=== PATIENT | male | born 1960 | race African-American/Black ===

== ENCOUNTER 2018-02-02 15:18 | Emergency (ER) | payer MEDICAID ==
[2018-02-02] MEDS ORDERED: ONDANSETRON 4 MG TAB.RAPDIS PO ONE (15:51)
[2018-02-02] MEDS ORDERED: OXYCODONE-ACETAMINOPHEN 5-325 MG TABLET PO ONE ×2 (15:51→18:25)
--- NOTE | 2018-02-02 15:56 | ER Document Report ---
ED General - General Stated Complaint: RIGHT HIP PAIN LEFT RIB PAIN Time Seen by Provider: 02/02/18 15:50 Mode of Arrival: Medic Information source: Patient Notes: 58 [address] male on way to get xray ordered by dr. alcantara and decided that his chronic right back pain with radiculopathy was worse, and worried about the swelling to his left chest, nipple, neck so he came by EMS. Here with . Hx SVC syndrome, bypass, renal insufficiency, diabetes. No saddel anesthesia. TRAVEL OUTSIDE OF THE [place] IN LAST 30 DAYS: No - Related Data Allergies/Adverse Reactions: No Known Allergies Allergy (Unverified 02/25/16 01:45) Past Medical History - General Information source: Patient, Relative - - Social History Smoking Status: Former Smoker Frequency of alcohol use: None Drug Abuse: None Family History: Reviewed & Not Pertinent - Past Medical History Cardiac Medical History: Reports: Other - SVC syndrom Renal/ Medical History: Reports: Other - renal insufficiency Psychiatric Medical History: Reports: Hx Depression Past Surgical History: Reports: Other - SVC bypass - Immunizations Hx Pneumococcal Vaccination: 11/29/11 Review of Systems - Review of Systems Constitutional: No symptoms reported EENT: No symptoms reported Cardiovascular: No symptoms reported Respiratory: No symptoms reported Gastrointestinal: No symptoms reported Genitourinary: No symptoms reported Male Genitourinary: No symptoms reported Musculoskeletal: See HPI Skin: See HPI Hematologic/Lymphatic: No symptoms reported Neurological/Psychological: No symptoms reported Physical Exam - Vital signs Vitals: Temp Pulse BP Pulse Ox 98.6 F 75 132/78 H 99 02/02/18 16:21 02/02/18 16:21 02/02/18 16:21 02/02/18 16:21 Interpretation: Normal - General General appearance: Appears well, Alert, Anxious In distress: None - HEENT Head: Normocephalic, Atraumatic Eyes: Normal Conjunctiva: Normal Pupils: PERRL Neck: Supple Notes: left neck veins engorged - Respiratory Respiratory status: No respiratory distress Chest status: Other - extensive enlarged left chest venous system, indurated area left sub aerola, mid chest, multiple veins down left abominal wall ? bypass Breath sounds: Normal Chest palpation: Normal - Cardiovascular Rhythm: Regular Heart sounds: Normal auscultation Murmur: No - Abdominal Inspection: Normal Distension: No distension Bowel sounds: Normal Tenderness: Nontender Organomegaly: No organomegaly - Back Back: Normal, Tender - right lumbar, sacral iliac. No: Vertebra tenderness - Extremities General upper extremity: Normal inspection, Nontender, Normal color, Normal ROM , Normal temperature General lower extremity: Normal inspection, Nontender, Normal color, Normal ROM , Normal temperature, Normal weight bearing. No: Donavan's sign - Neurological Neuro grossly intact: Yes Cognition: Normal Orientation: AAOx4 [place] Coma Scale Eye Opening: Spontaneous Zan Coma Scale Verbal: Oriented Zan Coma Scale Motor: Obeys Commands Zan Coma Scale Total: 15 Speech: Normal Motor strength normal: LUE, RUE, LLE, RLE Sensory: Normal Knee - Reflex grade: 1 = Hypoactive - norman Ankle - Reflex grade: 1 = Hypoactive - norman - Psychological Associated symptoms: Normal affect, Normal mood - Skin Skin Temperature: Warm Skin Moisture: Dry Skin Color: Normal Skin irregularity: negative: Rash Course - Re-evaluation Re-evalutation: 02/02/18 15:[address] Babcock, get the ct abd/pelvis/chest with IV contrast. 02/02/[address] lin who went into the room for pt evaluation and dispo. Pt to f/ u with dr. alcantara. Pt upset that .dr. Ferrari will not prescrbe pain medication anymore. Will refer to pain management. - Vital Signs Vital signs: Temp Pulse Resp BP Pulse Ox 97.3 F 72 16 143/90 H 100 02/02/18 20:14 02/02/18 20:14 02/02/18 20:14 02/02/18 20:14 02/02/18 20:14 - Laboratory Result Diagrams: 02/02/18 16:30 02/02/18 16:30 Laboratory results interpreted by me: 02/02/18 02/02/18 02/02/18 16:30 16:30 16:30 RBC 4.27 L MCV 98 H PT 16.4 H APTT 37.6 H BUN 28 H Creatinine 1.82 H Est GFR ( Amer) 47 L Est GFR (Non-Af Amer) 39 L Glucose 200 H Alkaline Phosphatase 184 H Urine Protein Urine Glucose (UA) 02/02/18 19:06 RBC MCV PT APTT BUN Creatinine Est GFR ( Amer) Est GFR (Non-Af Amer) Glucose Alkaline Phosphatase Urine Protein 100 H Urine Glucose (UA) 150 H Discharge - Discharge Clinical Impression: right low back pain with radiculopathy, chest wall vascular congestion Condition: Good Disposition: HOME, SELF-CARE Instructions: Low Back Pain ([facility]), Radiculopathy ([facility]), Sciatica ([facility]) Additional Instructions: warm compress pain medication short course see dr. alcantara tomorrow referral to [facility] to er if worse lidocaine patches to your back Prescriptions: Lidocaine [Lidoderm 5% (700 mg) Transdermal Patch] 1 patch TP PRN PRN #20 adh..patch PRN Reason: Oxycodone HCl/Acetaminophen [Percocet 5-325 mg Tablet] 1 - 2 tab PO ASDIR PRN # 15 tablet PRN Reason: Prednisone [Deltasone 10 mg Tablet] 10 mg PO ASDIR PRN #21 tablet PRN Reason: Referrals: JIMMY ALCANTARA MD [Primary Care Provider] - Follow up tomorrow GEE OH MD [ACTIVE STAFF] - Follow up tomorrow
[2018-02-02 16:49] LABS: INTERNATIONAL RATION (INR) 1.24; PROTHROMBIN TIME 16.4 SEC (11.4-15.4)
[2018-02-02 16:50] LABS: PARTIAL THROMBOPLASTIN TIME 37.6 SEC (23.5-35.8)
[2018-02-02 16:56] LABS: ABSOLUTE BASOPHILS # (AUTO) 0.1 10^3/uL (0.0-0.2); ABSOLUTE EOSINOPHILS # (AUTO) 0.3 10^3/uL (0.0-0.6); ABSOLUTE LYMPHOCYTES (AUTO) 1.9 10^3/uL (0.5-4.7); ABSOLUTE MONOCYTES (AUTO) 0.8 10^3/uL (0.1-1.4); ABSOLUTE NEUT (AUTO) 4.3 10^3/uL (1.7-8.2); BASOPHILS % (AUTO) 0.8 % (0-2); EOSINOPHILS % (AUTO) 3.6 % (0-6); HEMATOCRIT 41.8 % (37.9-51.0); HEMOGLOBIN 14.3 g/dL (13.5-17.0); LYMPHOCYTES % (AUTO) 26.6 % (13-45); MEAN CORPUSCULAR HEMOGLOBIN 33.4 pg (27.0-33.4); MEAN CORPUSCULAR HGB CONC 34.2 g/dL (32.0-36.0); MEAN CORPUSCULAR VOLUME 98 fl (80-97); MONOCYTES % (AUTO) 10.3 % (3-13); PLATELET COUNT 220 10^3/uL (150-450); RED BLOOD COUNT 4.27 10^6/uL (4.35-5.55); RED CELL DISTRIBUTION WIDTH 13.6 % (11.5-14.0); SEGMENTED NEUTROPHILS % (AUTO) 58.7 % (42-78); TOTAL CELLS COUNTED % (AUTO) 100 %; WHITE BLOOD COUNT 7.3 10^3/uL (4.0-10.5)
[2018-02-02 17:07] LABS: ALANINE AMINOTRANSFERASE 32 U/L (21-72); ALKALINE PHOSPHATASE 184 U/L (38-126); ANION GAP 6 (5-19); ASPARTATE AMINO TRANSFERASE 40 U/L (17-59); BILIRUBIN,DIRECT 0.4 mg/dL (0.0-0.4); BILIRUBIN,TOTAL 0.4 mg/dL (0.2-1.3); BLOOD UREA NITROGEN 28 mg/dL (7-20); CALCIUM 9.1 mg/dL (8.4-10.2); CARBON DIOXIDE 28 mmol/L (22-30); CHLORIDE 104 mmol/L (98-107); GLUCOSE 200 mg/dL (75-110); POTASSIUM 4.4 mmol/L (3.6-5.0); SODIUM 138.3 mmol/L (137-145); TOTAL PROTEIN 7.3 g/dL (6.3-8.2)
--- NOTE | 2018-02-02 18:29 | RADIOLOGY REPORT (SQ) ---
EXAM DESCRIPTION: CT CHEST WITH COMPLETED DATE/TIME: 02/02/2018 6:13 pm REASON FOR STUDY: left chest mass, hx SVC, bypass COMPARISON: None. TECHNIQUE: CT scan of the chest performed using helical scanning technique with dynamic intravenous contrast injection. Images reviewed with lung, soft tissue and bone windows. Reconstructed coronal and sagittal MPR images reviewed. All images stored on PACS. All CT scanners at this facility use dose modulation, iterative reconstruction, and/or weight based d osing when appropriate to reduce radiation dose to as low as reasonably achievable (ALARA). [facility]: Dose Right [facility]: CareDose [facility]: Dose Right [facility]: Teradose 4D [facility]: [facility] [employer] CONTRAST TYPE AND DOSE: contrast/concentration: Isovue 370.00 mg/ml; Total Contrast Delivered: 100.0 ml; Total Saline Delivered: 45.0 ml RENAL FUNCTION: BUN 28 creatinine 1.8 RADIATION DOSE: . LIMITATIONS: None. FINDINGS: LUNGS AND PLEURA: No opacities, nodules, masses. No pneumothorax. No effusions. HILAR AND MEDIASTINAL STRUCTURES: No identified masses or abnormal nodes. HEART AND VASCULAR STRUCTURES: No aneurysm or dissection. No central pulmonary emboli. No pericardi al effusion. The superior vena cava appears to be occluded and there are extensive subcutaneous brian ateral vessels in the anterior chest and abdomen. HARDWARE: Sternotomy wires. UPPER ABDOMEN: See separate report of the CT of the abdomen. THYROID AND OTHER SOFT TISSUES: Thyroid is normal. BONES: No significant finding. OTHER: No other significant finding. IMPRESSION: Stable vascular findings. No acute abnormality is seen in the chest. TECHNICAL DOCUMENTATION: JOB ID: [id number] Quality ID # [id number]: Final reports with documentation of one or more dose reduction techniques (e.g., Au tomated exposure control, adjustment of the mA and/or kV according to patient size, use of iterative reconstruction technique) 2010 [employer]- All Rights Reserved Reading location - IP/workstation name: [email or web address]
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
[2018-02-02 19:33] LABS: APPEARANCE,URINE CLEAR; BILIRUBIN,URINE NEGATIVE (NEGATIVE); COLOR,URINE YELLOW; GLUCOSE, URINE 150 mg/dL (NEGATIVE); KETONES,URINE NEGATIVE (NEGATIVE); LEUKOCYTE ESTERASE,URINE NEGATIVE (NEGATIVE); NITRITE,URINE NEGATIVE (NEGATIVE); PROTEIN,URINE 100 mg/dL (NEGATIVE); URINE SPECIFIC GRAVITY 1.013; UROBILINOGEN,URINE NEGATIVE mg/dL (<2.0)
[2018-02-02 20:16] VITALS: BP 143/90
== END 2018-02-02 20:28 | disposition home or self-care (01) ==
LOC: ER 15:18
DX: M54.16 Radiculopathy, lumbar region (principal); I87.8 Other specified disorders of veins; R07.81 Pleurodynia; G89.29 Other chronic pain; M25.551 Pain in right hip
CPT/HCPCS: 99284; 36415; 87040; 85025; 85610; 85730; 80053; 81001; 71260; 74177; S0119

== ENCOUNTER → 2018-10-19 | Outpatient (CLI) | payer MEDICAID ==
[2018-10-19 11:56] LABS: UR PRO/CREAT RATIO RESULT 0.6 mg/mg (0.0-0.2); URINE PROTEIN 74.8 mg/dL (<12)
[2018-10-21 13:24] LABS: ANION GAP 10 (5-19); BLOOD UREA NITROGEN 58 mg/dL (7-20); CALCIUM 9.2 mg/dL (8.4-10.2); CARBON DIOXIDE 27 mmol/L (22-30); CHLORIDE 106 mmol/L (98-107); GLUCOSE 242 mg/dL (75-110); POTASSIUM 5.3 mmol/L (3.6-5.0); SODIUM 143.4 mmol/L (137-145)
== END ==
LOC: OD 10:35
PROVIDERS: ATTEND Internal Medicine Nephrology
DX: E11.22 Type 2 diabetes mellitus with diabetic chronic kidney disease (principal); N18.3 Chronic kidney disease, stage 3 (moderate); R80.9 Proteinuria, unspecified; E11.21 Type 2 diabetes mellitus with diabetic nephropathy
CPT/HCPCS: 36415; 80048; 82570; 84156

== ENCOUNTER → 2018-10-26 | Outpatient (CLI) | payer MEDICAID ==
--- NOTE | 2018-10-26 11:42 | RADIOLOGY REPORT (SQ) ---
EXAM DESCRIPTION: U/S SCROTUM W/DOPPLER COMPLETED DATE/TIME: 10/26/2018 11:01 am REASON FOR STUDY: TESTICULAR PAIN N50.819 TESTICULAR PAIN, UNSPECIFIED COMPARISON: CT abdomen pelvis 02/02/2018 TECHNIQUE: Static and realtime negron scale imaging of the scrotum and testes. Selected color Doppler and spectral images recorded to document blood flow. LIMITATIONS: None. FINDINGS: RIGHT: TESTICLE: Normal size, 3.9 x 2.1 x 2 cm in size. Normal echotexture. Normal blood flow. No mass. EPIDIDYMIS: 2 mm epididymal cyst, otherwise unremarkable HYDROCELE OR VARICOCELE: Small right hydrocele HERNIA OR EXTRA-TESTICULAR MASS: No. OTHER: No other significant finding. LEFT: TESTICLE: Normal size, acute the since films 3.2 x 2.6 x 1.7 cm in size. Normal echotexture. Normal blood flow. No mass. EPIDIDYMIS: Normal. HYDROCELE OR VARICOCELE: Small left hydrocele HERNIA OR EXTRA-TESTICULAR MASS: No. OTHER: No other significant finding. IMPRESSION: NORMAL SCROTAL ULTRASOUND. NO EVIDENCE OF TESTICULAR MASS OR TORSION. TECHNICAL DOCUMENTATION: JOB ID: [id number] [employer]- All Rights Reserved Reading location - IP/workstation name: [email or web address]
--- NOTE | 2018-10-26 13:11 | RADIOLOGY REPORT (SQ) ---
EXAM DESCRIPTION: TIBIA FIBULA LEFT COMPLETED DATE/TIME: 10/26/2018 12:37 pm REASON FOR STUDY: PAIN IN LEFT KNEE (M25.562) N50.819 TESTICULAR PAIN, UNSPECIFIED COMPARISON: Left tibia and fibula 02/24/2016, 02/26/2016, 05/06/2016 NUMBER OF VIEWS: Two views. TECHNIQUE: Two radiographic images acquired of the left tibia and fibula to include the knee and ank le in at least one projection. LIMITATIONS: None. FINDINGS: MINERALIZATION: Normal. BONES: Old left spiral fracture distal 3rd left tibial diaphysis with intramedullary nail with anchor ing screws. There is mild lucency around the intramedullary nail suggesting loosening, and fracture of the more inferior of the 2 proximal metaphyseal anchoring screws. Old healed spiral fracture proximal 3rd left fibula without hardware. Small osteochondral defect medial femoral condyle weight-bearing surface. SOFT TISSUES: No obvious swelling or foreign body. OTHER: No other significant finding. IMPRESSION: No acute fracture or malalignment. Old healed distal 3rd left tibia spiral fracture with hardware. There is lucency around the intramed ullary nail with fracture of 1 of the tibial proximal metaphysis screws. Old healed proximal 3rd left fibula fracture TECHNICAL DOCUMENTATION: JOB ID: [id number] [employer]- All Rights Reserved Reading location - IP/workstation name: [email or web address]
== END ==
LOC: RAD 11:27
PROVIDERS: ATTEND Internal Medicine
DX: N50.819 Testicular pain, unspecified (principal)
CPT/HCPCS: 76870; 93976

== ENCOUNTER → 2018-11-28 | Outpatient (CLI) | payer MEDICAID ==
--- NOTE | 2018-11-28 11:49 | RADIOLOGY REPORT (SQ) ---
EXAM DESCRIPTION: L SPINE WHOLE COMPLETED DATE/TIME: 11/28/2018 11:08 am REASON FOR STUDY: RADICULOPATHY, LUMBAR REGION M54.16 RADICULOPATHY, LUMBAR REGION COMPARISON: 06/04/2008 NUMBER OF VIEWS: Five views including obliques. TECHNIQUE: AP, lateral, oblique, and sacral radiographic images acquired of the lumbar spine. LIMITATIONS: None. FINDINGS: MINERALIZATION: Normal. SEGMENTATION: Normal. No transitional anatomy. ALIGNMENT: Normal. VERTEBRAE: Maintained height. No fracture or worrisome bone lesion. DISCS: Slight to mild multilevel disc space narrowing with small anterior osteophytes. Linear scler otic changes across the superior endplate at L4 may be on a degenerative basis. POSTERIOR ELEMENTS: Pedicles and facets are intact. No pars defect or posterior arch defects. HARDWARE: None in the spine. PARASPINAL SOFT TISSUES: Normal. PELVIS: Intact as visualized. No fractures or worrisome bone lesions. SI joints intact. OTHER: Multiple surgical metallic clips in the upper abdomen and pelvic region. IMPRESSION: 1. Mild degenerative changes involving the lumbar spine. 2. No acute osseous findings. 3. In view of the given history and symptoms, additional imaging may be helpful. TECHNICAL DOCUMENTATION: JOB ID: [id number] [employer]- All Rights Reserved Reading location - IP/workstation name: [email or web address]
== END ==
LOC: RAD 10:19
PROVIDERS: ATTEND Internal Medicine
DX: M51.06 Intervertebral disc disorders with myelopathy, lumbar region (principal)
CPT/HCPCS: 72110

== ENCOUNTER → 2019-01-06 | Outpatient (CLI) | payer MEDICAID ==
--- NOTE | 2019-01-06 09:24 | RADIOLOGY REPORT (SQ) ---
EXAM DESCRIPTION: U/S ABDOMEN LIMITED W/O DOP COMPLETED DATE/TIME: 01/06/2019 9:13 am REASON FOR STUDY: R10.817 GENERALIZED ABDOMINAL TENDERNESS R10.817 GENERALIZED ABDOMINAL TENDERNESS R11.0 NAUSEA COMPARISON: None. TECHNIQUE: Dynamic and static grayscale images acquired of the abdomen and recorded on PACS. Additio nal selected color Doppler and spectral images recorded. LIMITATIONS: None. FINDINGS: PANCREAS: Suboptimal examination due to overlying bowel gas. LIVER: The liver measures 11.1 cm, normal size. No masses. Echotexture normal. LIVER VASCULATURE: Normal directional flow of the main portal vein and hepatic veins. GALLBLADDER: Prior cholecystectomy. ULTRASOUND-DETECTED PRESTON'S SIGN: Negative. INTRAHEPATIC DUCTS AND COMMON DUCT: CBD measures 8.4 mm in diameter, normal. The intrahepatic ducts normal caliber. No filling defects. INFERIOR VENA CAVA: Normal flow. AORTA: No aneurysm. RIGHT KIDNEY: The right kidney measures 9.1 cm in length, normal size. Normal echogenicity. No solid or suspicious masses. No hydronephrosis. No calcifications. PERITONEAL AND RIGHT PLEURAL SPACE: No ascites or effusions. OTHER: No other significant findings. IMPRESSION: 1. Prior cholecystectomy. 2. The pancreas is suboptimally visualized due to overlying bowel gas. TECHNICAL DOCUMENTATION: JOB ID: [id number] [employer]- All Rights Reserved Reading location - IP/workstation name: [email or web address]
== END ==
LOC: RAD 08:35
PROVIDERS: ATTEND Internal Medicine Gastroenterology
DX: R10.817 Generalized abdominal tenderness (principal); R11.0 Nausea; Z90.49 Acquired absence of other specified parts of digestive tract
CPT/HCPCS: 76705

== ENCOUNTER 2019-02-07 19:09 | Inpatient (IN) | payer MEDICAID ==
[2019-02-07] MEDS: NORMAL SALINE 1000 ML 1,000 ML IV PRN ×2 (19:22→20:07)
[2019-02-07] MEDS ORDERED: DILTIAZEM HCL INJ 25 MG/5 ML VIAL ONE (19:31)
[2019-02-07] MEDS ORDERED: ADENOSINE INJ/PF 6 MG/2 ML SDV IV ONE (19:36)
[2019-02-07] MEDS ORDERED: DILTIAZEM HCL INJ 25 MG/5 ML VIAL IV ONE (19:36)
--- NOTE | 2019-02-07 19:36 | ER Document Report ---
ED General - General Chief Complaint: Abdominal Pain Stated Complaint: ABDOMINAL PAIN Time Seen by Provider: 02/07/19 19:35 Notes: 59-year-old male to the emergency department for evaluation of shortness of breath and nausea and vomiting and abdominal pain. Patient has long-standing history of pancreatitis, supervision ventricular tachycardia as well as superior vena cava syndrome. Followed by multiple specialist. On Coumadin. Began hav ing shortness of breath after vomiting excessively. Some mild pain in the chest. Heart is racing. EMS was notified. EMS was unable to obtain IV access and the right here was quite short so brought to the ER. Placed in trauma 1 on arrival. His heart rate was found to be 180. Stat IV obtained. TRAVEL OUTSIDE OF THE [place] IN LAST 30 DAYS: No - HPI Onset: Just prior to arrival Severity: Mild Pain Level: 1 - Related Data Allergies/Adverse Reactions: hydromorphone [From Dilaudid] Adverse Reaction (Mild, Verified 02/07/19 19:39) Hives morphine Adverse Reaction (Mild, Verified 02/07/19 20:47) Hives Past Medical History - General Information source: Patient, PENDING SALE TO [facility] Records - Social History Smoking Status: Current Every Day Smoker Frequency of alcohol use: None Drug Abuse: None Lives with: Spouse/Significant other Family History: Reviewed & Not Pertinent - Past Medical History Cardiac Medical History: Reports: Hx Hypertension Pulmonary Medical History: Reports: Hx COPD Endocrine Medical History: Reports: Hx Diabetes Mellitus Type 2 Renal/ Medical History: Denies: Hx Peritoneal Dialysis GI Medical History: Reports: Hx Gastroesophageal Reflux Disease Psychiatric Medical History: Reports: Hx Depression Past Surgical History: Reports: Hx Appendectomy, Hx Cardiac Catheterization - x2, Hx Cardiac Surgery - Bypass, Hx Cholecystectomy, Other - SVC bypass - Immunizations Hx Pneumococcal Vaccination: 11/29/11 Review of Systems - Review of Systems Notes: Constitutional: denies: Chills, Diaphoresis, Fever, Malaise, Weakness EENT: denies: Eye discharge, Blurred vision, Tearing, Double vision, Nose congestion, Nose discharge, Throat swelling, Mouth pain Cardiovascular: denies: Palpitations, Heart racing, Orthopnea, +Dyspnea,+Chest pain Respiratory: denies: Cough, Hurts to breathe, Wheezing,+ Shortness of breath Gastrointestinal: denies: Abdominal pain, Diarrhea, Nausea, Vomiting, Black stools, bright red blood in stool Genitourinary: denies: Burning, Dysuria, Discharge, Frequency, Flank pain, Hematuria Musculoskeletal: denies: Joint pain, Joint swelling, Muscle pain, Muscle stiffness, back pain Hematologic/Lymphatic: denies: Anemia, Easy bleeding, Easy bruising, +Blood clots Neurological/Psychological: denies: Confusion, Dementia, Depression, Loss of consciousness Skin: No lesions, no masses, no skin breakdown, no abscesses Physical Exam - Vital signs Vitals: Resp Pulse Ox 15 98 02/07/19 19:12 02/07/19 19:12 Interpretation: Tachycardic - General General appearance: Appears well, Alert, Anxious - HEENT Head: Normocephalic, Atraumatic Eyes: Normal Pupils: PERRL - Respiratory Respiratory status: No respiratory distress Chest status: Nontender Breath sounds: Normal Chest palpation: Normal Notes: Chest reveals large amount of dilated venous blood vessels consistent with his reported history of superior vena cava syndrome. - Cardiovascular Rhythm: Irregularly irregular, Tachycardia Heart sounds: Normal auscultation Murmur: No - Abdominal Inspection: Normal Distension: No distension Bowel sounds: Normal Tenderness: Nontender Organomegaly: No organomegaly - Back Back: Normal, Nontender - Extremities General upper extremity: Normal inspection, Nontender, Normal color, Normal ROM, Normal temperature General lower extremity: Normal inspection, Nontender, Normal color, Normal ROM, Normal temperature. No: Donavan's sign - Neurological Neuro grossly intact: Yes Cognition: Normal Orientation: AAOx4 [place] Coma Scale Eye Opening: Spontaneous Zan Coma Scale Verbal: Oriented Zan Coma Scale Motor: Obeys Commands Zan Coma Scale Total: 15 Speech: Normal Motor strength normal: LUE, RUE, LLE, RLE Sensory: Normal - Psychological Associated symptoms: Normal affect, Normal mood - Skin Skin Temperature: Warm Skin Moisture: Dry Skin Color: Normal Course - Re-evaluation Re-evalutation: 02/07/19 20:34 59-year-old male with atrial fibrillation with RVR and intermittent SVT. On a diltiazem drip at this time. Blood pressure holding steady at 110/80. Currently at this time still needs to be admitted. I have consulted with Dr. Martínez his primary care doctor. He will admit him at this time in stable condition. 02/07/19 20:34 Laboratory 0302/07/19 02/07/19 19:20 19:20 19:20 WBC 8.9 RBC 4.19 L Hgb 14.2 Hct 41.1 MCV 98 H MCH 33.9 H MCHC 34.6 RDW 14.2 H Plt Count 234 Seg Neutrophils % 69.7 Lymphocytes % 19.1 Monocytes % 8.4 Eosinophils % 1.6 Basophils % 1.2 Absolute Neutrophils 6.2 Absolute Lymphocytes 1.7 Absolute Monocytes 0.7 Absolute Eosinophils 0.1 Absolute Basophils 0.1 PT 15.3 INR 1.15 Sodium 135.1 L Potassium 4.8 Chloride 101 Carbon Dioxide 26 Anion Gap 8 BUN 32 H Creatinine 2.05 H Est GFR ( Amer) 41 L Est GFR (Non-Af Amer) 34 L Glucose 216 H Calcium 9.5 Total Bilirubin 0.8 Direct Bilirubin 0.4 Neonat Total Bilirubin Not Reportable Neonat Direct Bilirubin Not Reportable Neonat Indirect Bili Not Reportable AST 29 ALT 22 Alkaline Phosphatase 191 H Creatine Kinase 128 CK-MB (CK-2) Troponin I Total Protein 7.2 Albumin 4.2 02/07/19 02/07/19 19:20 19:20 WBC RBC Hgb Hct MCV MCH MCHC RDW Plt Count Seg Neutrophils % Lymphocytes % Monocytes % Eosinophils % Basophils % Absolute Neutrophils Absolute Lymphocytes Absolute Monocytes Absolute Eosinophils Absolute Basophils PT INR Sodium Potassium Chloride Carbon Dioxide Anion Gap BUN Creatinine Est GFR ( Amer) Est GFR (Non-Af Amer) Glucose Calcium Total Bilirubin Direct Bilirubin Neonat Total Bilirubin Neonat Direct Bilirubin Neonat Indirect Bili AST ALT Alkaline Phosphatase Creatine Kinase CK-MB (CK-2) 0.76 Troponin I < 0.012 Cancelled Total Protein Albumin Chest X-Ray 02/07/19 19:34 IMPRESSION: No acute disease. - Vital Signs Vital signs: Temp Pulse Resp BP Pulse Ox 98.1 F 14 102/65 96 02/07/19 19:13 02/07/19 23:45 02/07/19 23:41 02/07/19 23:45 - Laboratory Result Diagrams: 02/07/19 22:40 02/07/19 19:20 Laboratory results interpreted by me: 02/07/19 02/07/19 19:20 19:20 RBC 4.19 L MCV 98 H MCH 33.9 H RDW 14.2 H Sodium 135.1 L BUN 32 H Creatinine 2.05 H Est GFR ( Amer) 41 L Est GFR (Non-Af Amer) 34 L Glucose 216 H Alkaline Phosphatase 191 H Critical Care Note - Critical Care Note Total time excluding time spent on procedures (mins): 45 Comments: Bedside supervision of medication intervention for tachycardia and arrhythmia, consultation with specialist, Discharge - Discharge Clinical Impression: Atrial fibrillation with rapid ventricular response Chronic renal failure Qualifiers: Chronic kidney disease stage: unspecified stage Qualified Code(s): N18.9 - Chronic kidney disease, unspecified Condition: Fair Disposition: ADMITTED INPATIENT Admitting Provider: [facility] Admitted: [facility]
[2019-02-07 19:45] LABS: ABSOLUTE BASOPHILS # (AUTO) 0.1 10^3/uL (0.0-0.2); ABSOLUTE EOSINOPHILS # (AUTO) 0.1 10^3/uL (0.0-0.6); ABSOLUTE LYMPHOCYTES (AUTO) 1.7 10^3/uL (0.5-4.7); ABSOLUTE MONOCYTES (AUTO) 0.7 10^3/uL (0.1-1.4); ABSOLUTE NEUT (AUTO) 6.2 10^3/uL (1.7-8.2); BASOPHILS % (AUTO) 1.2 % (0-2); EOSINOPHILS % (AUTO) 1.6 % (0-6); HEMATOCRIT 41.1 % (37.9-51.0); HEMOGLOBIN 14.2 g/dL (13.5-17.0); INTERNATIONAL RATION (INR) 1.15; LYMPHOCYTES % (AUTO) 19.1 % (13-45); MEAN CORPUSCULAR HEMOGLOBIN 33.9 pg (27.0-33.4); MEAN CORPUSCULAR HGB CONC 34.6 g/dL (32.0-36.0); MEAN CORPUSCULAR VOLUME 98 fl (80-97); MONOCYTES % (AUTO) 8.4 % (3-13); PLATELET COUNT 234 10^3/uL (150-450); PROTHROMBIN TIME 15.3 SEC (11.4-15.4); RED BLOOD COUNT 4.19 10^6/uL (4.35-5.55); RED CELL DISTRIBUTION WIDTH 14.2 % (11.5-14.0); SEGMENTED NEUTROPHILS % (AUTO) 69.7 % (42-78); TOTAL CELLS COUNTED % (AUTO) 100 %; WHITE BLOOD COUNT 8.9 10^3/uL (4.0-10.5)
[2019-02-07 19:57] LABS: ALANINE AMINOTRANSFERASE 22 U/L (21-72); ALBUMIN 4.2 g/dL (3.5-5.0); ALKALINE PHOSPHATASE 191 U/L (38-126); ANION GAP 8 (5-19); ASPARTATE AMINO TRANSFERASE 29 U/L (17-59); BILIRUBIN,DIRECT 0.4 mg/dL (0.0-0.4); BILIRUBIN,TOTAL 0.8 mg/dL (0.2-1.3); BLOOD UREA NITROGEN 32 mg/dL (7-20); CALCIUM 9.5 mg/dL (8.4-10.2); CARBON DIOXIDE 26 mmol/L (22-30); CHLORIDE 101 mmol/L (98-107); CREATINE KINASE 128 U/L (55-170); GLUCOSE 216 mg/dL (75-110); POTASSIUM 4.8 mmol/L (3.6-5.0); SODIUM 135.1 mmol/L (137-145); TOTAL PROTEIN 7.2 g/dL (6.3-8.2)
[2019-02-07] MEDS ORDERED: DILTIAZEM HCL/D5W 125 MG/125 ML RTUINJ IV ONE (20:02)
[2019-02-07 20:08] LABS: CREATINE KINASE MB 0.76 ng/mL (<4.55)
[2019-02-07] MEDS ORDERED: DILTIAZEM HCL/D5W 125 MG/125 ML RTUINJ IV PRN (20:08)
[2019-02-07 20:10] LABS: TROPONIN I < 0.012 ng/mL
--- NOTE | 2019-02-07 20:14 | RADIOLOGY REPORT (SQ) ---
EXAM DESCRIPTION: XR CHEST 1 VIEW COMPLETED DATE/TME: 02/07/2019 19:34 CLINICAL HISTORY: 59 years, Male, PALPITATIONS Compared to 06/12/2011. FINDINGS: Heart is moderately enlarged. Status post median sternotomy. No consolidations or pleural effusions. No pulmonary edema or pneumothorax. IMPRESSION: No acute disease.
[2019-02-07] MEDS ORDERED: OXYCODONE-ACETAMINOPHEN 5-325 MG TABLET PO ONE (20:38)
[2019-02-07] MEDS ORDERED: FENTANYL CITRATE INJ/PF 100 MCG/2 ML AMPUL IV ONE (20:38)
[2019-02-07] MEDS ORDERED: DEXTROSE 5%-WATER 500 ML with AMIODARONE HCL 900 MG IV PRN ×2 (22:09)
[2019-02-07] MEDS ORDERED: DEXTROSE 50%-WATER 25 GM/50 ML DISP.SYRIN IV PRN ×2 (22:11)
[2019-02-07] MEDS ORDERED: DEXTROSE 40% GEL 15 GM TUBE PO PRN ×2 (22:11)
[2019-02-07] MEDS ORDERED: GLUCAGON,HUMAN RECOMB 1 MG INJ IM PRN (22:11)
[2019-02-07] MEDS ORDERED: DICYCLOMINE HCL 10 MG CAPSULE PO PRN (22:20)
[2019-02-07] MEDS ORDERED: AMIODARONE HCL INJ 150 MG/3 ML VIAL IV ONE ×2 (22:32→22:33)
[2019-02-07 22:55] LABS: HEMATOCRIT 39.5 % (37.9-51.0); HEMOGLOBIN 13.4 g/dL (13.5-17.0); MEAN CORPUSCULAR HEMOGLOBIN 33.6 pg (27.0-33.4); MEAN CORPUSCULAR VOLUME 99 fl (80-97); PLATELET COUNT 194 10^3/uL (150-450); RED BLOOD COUNT 3.99 10^6/uL (4.35-5.55); WHITE BLOOD COUNT 7.3 10^3/uL (4.0-10.5)
[2019-02-07] MEDS ORDERED: ERGOCALCIFEROL (VITAMIN D2) 50000 UNIT (1.25 MG) CAPSULE PO SCH (23:00)
[2019-02-07 23:03] LABS: INTERNATIONAL RATION (INR) 1.21; PROTHROMBIN TIME 15.9 SEC (11.4-15.4)
[2019-02-07 23:04] LABS: PARTIAL THROMBOPLASTIN TIME 36.6 SEC (23.5-35.8)
[2019-02-07 23:15] LABS: LIPASE 66.2 U/L (23-300); PHOSPHORUS 3.1 mg/dL (2.5-4.5)
[2019-02-07 23:29] LABS: TROPONIN I < 0.012 ng/mL
[2019-02-07] MEDS ORDERED: AMIODARONE HCL 150 MG in DEXTROSE 5%-WATER 100 ML IV ONE (23:30)
[2019-02-07 23:32] LABS: FREE T4 (FREE THYROXINE) 1.13 ng/dL (0.78-2.19)
[2019-02-07 23:46] LABS: THYROID STIMULATING HORMONE 5.24 uIU/mL (0.47-4.68)
[2019-02-07] MEDS ORDERED: INSULIN LISPRO 100 UNIT/ML 3 ML VIAL SUBCUT ONE (23:59)
[2019-02-07] MEDS ORDERED: METOPROLOL TARTRATE 25 MG TABLET PO ONE (23:59)
[2019-02-07] MEDS ORDERED: ATORVASTATIN CALCIUM 20 MG TABLET PO ONE (23:59)
[2019-02-07] MEDS ORDERED: WARFARIN SODIUM 5 MG TABLET PO ONE (23:59)
[2019-02-08] MEDS: OXYCODONE-ACETAMINOPHEN 5-325 MG TABLET PO PRN ×3 (00:42→20:43)
[2019-02-08] MEDS: OXYCODONE HCL IR 5 MG TABLET PO PRN ×2 (00:43→08:47)
[2019-02-08] MEDS: LANSOPRAZOLE 30 MG TAB.RAP.DR PO SCH (05:03)
[2019-02-08 05:36] LABS: ABSOLUTE BASOPHILS # (AUTO) 0.1 10^3/uL (0.0-0.2); ABSOLUTE EOSINOPHILS # (AUTO) 0.2 10^3/uL (0.0-0.6); ABSOLUTE LYMPHOCYTES (AUTO) 2.5 10^3/uL (0.5-4.7); ABSOLUTE MONOCYTES (AUTO) 0.6 10^3/uL (0.1-1.4); ABSOLUTE NEUT (AUTO) 3.6 10^3/uL (1.7-8.2); BASOPHILS % (AUTO) 1.2 % (0-2); EOSINOPHILS % (AUTO) 3.3 % (0-6); HEMOGLOBIN 13.5 g/dL (13.5-17.0); LYMPHOCYTES % (AUTO) 35.9 % (13-45); MEAN CORPUSCULAR HEMOGLOBIN 34.1 pg (27.0-33.4); MEAN CORPUSCULAR HGB CONC 34.5 g/dL (32.0-36.0); MEAN CORPUSCULAR VOLUME 99 fl (80-97); MONOCYTES % (AUTO) 8.9 % (3-13); PLATELET COUNT 189 10^3/uL (150-450); RED BLOOD COUNT 3.95 10^6/uL (4.35-5.55); RED CELL DISTRIBUTION WIDTH 13.9 % (11.5-14.0); SEGMENTED NEUTROPHILS % (AUTO) 50.7 % (42-78); TOTAL CELLS COUNTED % (AUTO) 100 %; WHITE BLOOD COUNT 7.1 10^3/uL (4.0-10.5)
[2019-02-08 06:02] LABS: CREATINE KINASE MB 0.88 ng/mL (<4.55)
[2019-02-08 06:04] LABS: TROPONIN I < 0.012 ng/mL
[2019-02-08 06:07] LABS: ALANINE AMINOTRANSFERASE 60 U/L (21-72); ALBUMIN 3.7 g/dL (3.5-5.0); ALKALINE PHOSPHATASE 231 U/L (38-126); ASPARTATE AMINO TRANSFERASE 153 U/L (17-59); BILIRUBIN,DIRECT 0.3 mg/dL (0.0-0.4); BILIRUBIN,TOTAL 0.7 mg/dL (0.2-1.3); BLOOD UREA NITROGEN 28 mg/dL (7-20); CALCIUM 8.5 mg/dL (8.4-10.2); CREATINE KINASE 115 U/L (55-170); GLUCOSE 144 mg/dL (75-110); POTASSIUM 4.3 mmol/L (3.6-5.0); TOTAL PROTEIN 6.6 g/dL (6.3-8.2)
[2019-02-08 06:12] LABS: ANION GAP 5 (5-19); CARBON DIOXIDE 26 mmol/L (22-30); CHLORIDE 106 mmol/L (98-107); SODIUM 137.4 mmol/L (137-145)
[2019-02-08 06:59] LABS: APPEARANCE,URINE CLEAR; BILIRUBIN,URINE NEGATIVE (NEGATIVE); COLOR,URINE YELLOW; GLUCOSE, URINE 50 mg/dL (NEGATIVE); KETONES,URINE NEGATIVE (NEGATIVE); LEUKOCYTE ESTERASE,URINE NEGATIVE (NEGATIVE); NITRITE,URINE NEGATIVE (NEGATIVE); PROTEIN,URINE 100 mg/dL (NEGATIVE); UROBILINOGEN,URINE NEGATIVE mg/dL (<2.0)
[2019-02-08 07:17] LABS: URINE AMPHETAMINES SCREEN NEGATIVE; URINE BARBITURATES SCREEN UNCONFIRMED POSITIVE; URINE BENZODIAZEPINES SCREEN NEGATIVE; URINE COCAINE SCREEN UNCONFIRMED POSITIVE; URINE MARIJUANA (THC) SCREEN UNCONFIRMED POSITIVE; URINE METHADONE SCREEN NEGATIVE; URINE PHENCYCLIDINE SCREEN NEGATIVE
--- NOTE | 2019-02-08 07:49 | EKG REPORT ---
SEVERITY:- ABNORMAL ECG - SINUS TACHYCARDIA WITH PACS [id number] CONSIDER ANTEROSEPTAL INFARCT BORDERLINE PROLONGED QT INTERVAL : Confirmed by: Nilesh Santos MD 08-Feb-2019 07:49:10
--- NOTE | 2019-02-08 07:52 | EKG REPORT ---
SEVERITY:- ABNORMAL ECG - SUPRAVENTRICULAR TACHYCARDIA ANTERIOR INFARCT, OLD : Confirmed by: Nilesh Santos MD 08-Feb-2019 07:52:24
--- NOTE | 2019-02-08 07:52 | EKG REPORT ---
SEVERITY:- ABNORMAL ECG - SINUS RHYTHM WITH RUNS OF PACS, RECURSOR TO A FIB. ABERRENT CCONDUCTED COMPLEXES BORDERLINE T WAVE ABNORMALITIES BORDERLINE PROLONGED QT INTERVAL : Confirmed by: Nilesh Santos MD 08-Feb-2019 07:51:49
--- NOTE | 2019-02-08 07:52 | EKG REPORT ---
SEVERITY:- ABNORMAL ECG - SUPRAVENTRICULAR TACHYCARDIA : Confirmed by: Nilesh Santos MD 08-Feb-2019 07:52:10
[2019-02-08] MEDS: INSULIN LISPRO 100 UNIT/ML 3 ML VIAL SUBCUT SCH ×4 (08:42→22:14)
[2019-02-08 09:23] LABS: UR PRO/CREAT RATIO RESULT 0.3 mg/mg (0.0-0.2); URINE CREATININE 257.1 mg/dL (22-328); URINE PROTEIN 85.7 mg/dL (<12)
[2019-02-08] MEDS: INSULIN GLARGINE,HUM.REC.ANLOG 300 UNIT/3 ML INSULN.PEN SUBCUT SCH (09:37)
[2019-02-08] MEDS: BISACODYL 5 MG TABEC PO SCH (10:17)
[2019-02-08] MEDS: LOSARTAN POTASSIUM 50 MG TABLET PO SCH (10:17)
[2019-02-08] MEDS: CETIRIZINE 10 MG TABLET PO SCH (10:17)
[2019-02-08] MEDS: METOPROLOL TARTRATE 25 MG TABLET PO SCH ×2 (10:17→22:14)
[2019-02-08] MEDS: TIOTROPIUM BROMIDE DPI 5 CAP/KIT (18 MCG/CAP) IH SCH (10:17)
[2019-02-08] MEDS: VENLAFAXINE HCL 75 MG CAP.SR.24H PO SCH ×2 (10:17→18:48)
[2019-02-08] MEDS: ASPIRIN 325 MG TABLET PO SCH (10:18)
[2019-02-08] MEDS: BUSPIRONE HCL 10 MG TABLET PO SCH ×2 (10:18→18:48)
[2019-02-08 11:29] LABS: INTERNATIONAL RATION (INR) 1.13; PROTHROMBIN TIME 15.1 SEC (11.4-15.4)
[2019-02-08 11:53] LABS: CREATINE KINASE MB 0.91 ng/mL (<4.55)
[2019-02-08 12:01] LABS: TROPONIN I < 0.012 ng/mL
--- NOTE | 2019-02-08 13:18 | EKG REPORT ---
SEVERITY:- NORMAL ECG - SINUS RHYTHM : Confirmed by: Nilesh Santos MD 08-Feb-2019 13:17:31
--- NOTE | 2019-02-08 17:13 | PDOC H&P ---
History of Present Illness Admission Date/PCP: 02/07/19 21:18 JIMMY HARMAN MD History of Present Illness: JUANPABLO HURST is a 59 year old male,He came to emergency room last night for evaluation of palpitation, shortness of breath, chest pain, abdominal pain in the emergency room he was evaluated EKG demonstrated narrow complex tachycardia. In the emergency room he was treated with intravenous Cardizem infusion, adenosine without cardioversion, patient remains in narrow complex tachycardia, it was initially thought to be AV node reentrant tachycardia versus atrial fibrillation. I was called by the ED physician to admit this patient to the hospital for further management. Patient was on Cardizem infusion with a low blood pressure, the Cardizem was discontinued and he was started on intravenous amiodarone per protocol initially bolus and then maintenance ultimately he was cardioverted to sinus rhythm.The urine drug screen that was done was positive for cocaine, marijuana, and opiates Past Medical History Cardiac Medical History: Reports: Hypertension, Other - Superior vena cava syndrome Pulmonary Medical History: Reports: Chronic Obstructive Pulmonary Disease (COPD) Endocrine Medical History: Reports: Diabetes Mellitus Type 2 Renal/ Medical History: Reports: Other - Chronic kidney disease stage III GI Medical History: Reports: Gastroesophageal Reflux Disease, Hiatal Hernia Psychiatric Medical History: Reports: Depression Past Surgical History Past Surgical History: Reports: Appendectomy, Cardiac Catheterization - x2, Cholecystectomy, Other - SVC bypass Social History Lives with: Spouse/Significant other Smoking Status: Current Every Day Smoker Number of Years Smokin Last Time Smoked: 02/03/2019 Frequency of Alcohol Use: None Hx Recreational Drug Use: No Drugs: None, Cocaine, Marijuana Hx Prescription Drug Abuse: No - Advance Directive Resuscitation Status: Full Code Family History Family History: Reviewed & Not Pertinent Parental Family History Reviewed: Yes Children Family History Reviewed: Yes Sibling(s) Family History Reviewed.: Yes Medication/Allergy Home Medications: Albuterol Sulfate [Proventil Hfa] 2 puff IH BID 02/07/19 Aspirin [Aspirin 325 mg Tablet] 325 mg PO DAILY 02/07/19 Atorvastatin Calcium [Lipitor 20 mg Tablet] 20 mg PO QHS 02/07/19 Bisacodyl [Laxative] 5 mg PO DAILY 02/07/19 Buspirone HCl [Buspar 15 mg Tablet] 15 mg PO BID 02/07/19 Butalb/Acetaminophen/Caffeine [Zlqifp-Nzlplnro-Gkas 50-300-40] 1 tab PO Q6HP PRN 02/07/19 Cetirizine HCl [Zyrtec 10 mg Tablet] 10 mg PO DAILY 02/07/19 Cyclobenzaprine HCl [Flexeril 5 mg Tablet] 5 mg PO BIDP PRN 02/07/19 Dicyclomine HCl [Bentyl 10 mg Capsule] 10 mg PO Q8HP PRN 02/07/19 Ergocalciferol (Vitamin D2) [Drisdol 50,000 unit (1.25MG) Capsule] 50,000 unit PO [id number] 02/07/19 Furosemide [Lasix 40 mg Tablet] 40 mg PO DAILY 02/07/19 Insulin Aspart [Novolog Flexpen] 4 units SQ MEALS 02/07/19 Insulin Glargine,Hum.rec.anlog [Lantus Insulin 100 Unit/mL] 6 units SQ QAM 02/07/19 Losartan Potassium [Cozaar 50 mg Tablet] 50 mg PO DAILY 02/07/19 Metoprolol Tartrate [Lopressor 25 mg Tablet] 25 mg PO Q12 02/07/19 Montelukast Sodium [Singulair 10 mg Tablet] 10 mg PO QPM 02/07/19 Omeprazole 40 mg PO DAILY 02/07/19 Oxycodone HCl/Acetaminophen [Percocet 10-325 mg Tablet] 1 tab PO Q6HP PRN 02/07/19 Tiotropium [place] [Spiriva Handihaler 5 Cap/Kit (18 Mcg/Cap)] 1 cap IH DAILY 02/07/19 Venlafaxine HCl ER [Effexor Xr 75 mg Cap.sr] 75 mg PO BID 02/07/19 Warfarin Sodium [Coumadin 5 mg Tablet] 5 mg PO DAILY 02/07/19 Allergies/Adverse Reactions: hydromorphone [From Dilaudid] Adverse Reaction (Mild, Verified 02/07/19 19:39) Hives morphine Adverse Reaction (Mild, Verified 02/07/19 20:47) Hives Review of Systems Constitutional: ABSENT: chills, fever(s), headache(s), weight gain, weight loss Eyes: ABSENT: visual disturbances Ears: ABSENT: hearing changes Cardiovascular: PRESENT: chest pain. ABSENT: dyspnea on exertion, edema, orthropnea, palpitations Respiratory: ABSENT: cough, hemoptysis Gastrointestinal: PRESENT: abdominal pain. ABSENT: constipation, diarrhea, hematemesis, hematochezia, nausea, vomiting Genitourinary: ABSENT: dysuria, hematuria Musculoskeletal: ABSENT: joint swelling Integumentary: ABSENT: rash, wounds Neurological: ABSENT: abnormal gait, abnormal speech, confusion, dizziness, focal weakness, syncope Psychiatric: ABSENT: anxiety, depression, homidical ideation, suicidal ideation Endocrine: ABSENT: cold intolerance, heat intolerance, menstrual abnormalities, polydipsia, polyuria Hematologic/Lymphatic: ABSENT: easy bleeding, easy bruising, lymphadenopathy Physical Exam Vital Signs: Temp Pulse Resp BP Pulse Ox 97.4 F 46 L 14 126/70 H 100 02/08/19 15:31 02/08/19 15:31 02/08/19 15:31 02/08/19 11:24 02/08/19 15:31 Intake & Output 02/07/19 02/08/19 02/09/19 06:59 06:59 06:59 Intake Total 2054 302 Output Total 0 175 Balance 2054 127 Weight 81.3 kg General appearance: PRESENT: no acute distress Eye exam: PRESENT: conjunctiva pink, EOMI, PERRLA Ear exam: PRESENT: normal external ear exam Mouth exam: PRESENT: moist, tongue midline Neck exam: PRESENT: full ROM Respiratory exam: PRESENT: clear to auscultation norman Cardiovascular exam: PRESENT: RRR, +S1, +S2 Vascular exam: PRESENT: normal capillary refill GI/Abdominal exam: PRESENT: normal bowel sounds, soft Rectal exam: PRESENT: deferred Neurological exam: PRESENT: alert, CN II-XII grossly intact Skin exam: PRESENT: dry, intact, warm Results Laboratory Results: 02/08/19 05:00 02/08/19 05:00 02/07/19 02/07/19 02/07/19 19:20 19:20 19:20 WBC 8.9 RBC 4.19 L Hgb 14.2 Hct 41.1 MCV 98 H MCH 33.9 H MCHC 34.6 RDW 14.2 H Plt Count 234 Seg Neutrophils % 69.7 Lymphocytes % 19.1 Monocytes % 8.4 Eosinophils % 1.6 Basophils % 1.2 Absolute Neutrophils 6.2 Absolute Lymphocytes 1.7 Absolute Monocytes 0.7 Absolute Eosinophils 0.1 Absolute Basophils 0.1 Sodium 135.1 L Potassium 4.8 Chloride 101 Carbon Dioxide 26 Anion Gap 8 BUN 32 H Creatinine 2.05 H Est GFR ( Amer) 41 L Est GFR (Non-Af Amer) 34 L Glucose 216 H Calcium 9.5 Phosphorus Magnesium Total Bilirubin 0.8 AST 29 ALT 22 Alkaline Phosphatase 191 H Ammonia Total Protein 7.2 Albumin 4.2 Amylase Lipase 93.4 TSH Free T4 Urine Color Urine Appearance Urine pH Ur Specific [place] Urine Protein Urine Glucose (UA) Urine Ketones Urine Blood Urine Nitrite Ur Leukocyte Esterase Urine WBC (Auto) Urine RBC (Auto) 02/07/19 02/07/19 02/07/19 22:40 22:40 22:40 WBC RBC Hgb Hct MCV MCH MCHC RDW Plt Count Seg Neutrophils % Lymphocytes % Monocytes % Eosinophils % Basophils % Absolute Neutrophils Absolute Lymphocytes Absolute Monocytes Absolute Eosinophils Absolute Basophils Sodium Potassium Chloride Carbon Dioxide Anion Gap BUN Creatinine Est GFR ( Amer) Est GFR (Non-Af Amer) Glucose Calcium Phosphorus 3.1 Magnesium 2.1 Total Bilirubin AST ALT Alkaline Phosphatase Ammonia < 8.7 L Total Protein Albumin Amylase 88 Lipase 66.2 TSH 5.24 H Free T4 1.13 Urine Color Urine Appearance Urine pH Ur Specific [place] Urine Protein Urine Glucose (UA) Urine Ketones Urine Blood Urine Nitrite Ur Leukocyte Esterase Urine WBC (Auto) Urine RBC (Auto) 02/07/19 02/08/19 02/08/19 22:40 05:00 05:00 WBC 7.3 7.1 RBC 3.99 L 3.95 L Hgb 13.4 L 13.5 Hct 39.5 39.0 MCV 99 H 99 H MCH 33.6 H 34.1 H MCHC 34.0 34.5 RDW 14.0 13.9 Plt Count 194 189 Seg Neutrophils % 50.7 Lymphocytes % 35.9 Monocytes % 8.9 Eosinophils % 3.3 Basophils % 1.2 Absolute Neutrophils 3.6 Absolute Lymphocytes 2.5 Absolute Monocytes 0.6 Absolute Eosinophils 0.2 Absolute Basophils 0.1 Sodium 137.4 Potassium 4.3 Chloride 106 Carbon Dioxide 26 Anion Gap 5 BUN 28 H Creatinine 1.75 H Est GFR ( Amer) 49 L Est GFR (Non-Af Amer) 40 L Glucose 144 H Calcium 8.5 Phosphorus Magnesium Total Bilirubin 0.7 AST 153 H ALT 60 Alkaline Phosphatase 231 H Ammonia Total Protein 6.6 Albumin 3.7 Amylase Lipase TSH Free T4 Urine Color Urine Appearance Urine pH Ur Specific [place] Urine Protein Urine Glucose (UA) Urine Ketones Urine Blood Urine Nitrite Ur Leukocyte Esterase Urine WBC (Auto) Urine RBC (Auto) 02/08/19 06:15 WBC RBC Hgb Hct MCV MCH MCHC RDW Plt Count Seg Neutrophils % Lymphocytes % Monocytes % Eosinophils % Basophils % Absolute Neutrophils Absolute Lymphocytes Absolute Monocytes Absolute Eosinophils Absolute Basophils Sodium Potassium Chloride Carbon Dioxide Anion Gap BUN Creatinine Est GFR ( Amer) Est GFR (Non-Af Amer) Glucose Calcium Phosphorus Magnesium Total Bilirubin AST ALT Alkaline Phosphatase Ammonia Total Protein Albumin Amylase Lipase TSH Free T4 Urine Color YELLOW Urine Appearance CLEAR Urine pH 5.0 Ur Specific [place] 1.020 Urine Protein 100 H Urine Glucose (UA) 50 H Urine Ketones NEGATIVE Urine Blood NEGATIVE Urine Nitrite NEGATIVE Ur Leukocyte Esterase NEGATIVE Urine WBC (Auto) 0 Urine RBC (Auto) 3 02/07/19 02/07/19 02/07/19 19:20 19:20 19:20 Creatine Kinase 128 CK-MB (CK-2) 0.76 Troponin I < 0.012 Cancelled 02/07/19 02/07/19 02/08/19 22:40 22:40 05:00 Creatine Kinase 113 115 CK-MB (CK-2) 0.70 Troponin I < 0.012 02/08/19 02/08/19 02/08/19 05:00 10:58 10:58 Creatine Kinase 112 CK-MB (CK-2) 0.88 0.91 Troponin I < 0.012 < 0.012 Impressions: Chest X-Ray 02/07/19 19:34 IMPRESSION: No acute disease. Assessment & Plan - Diagnosis (1) Atrial fibrillation with RVR Is this a current diagnosis for this admission?: Yes Plan: Patient presented with narrow complex tachycardia/atrial fibrillation with RVR treated with amiodarone infusion. 2D echo will be ordered (2) Polysubstance abuse Is this a current diagnosis for this admission?: Yes Plan: The UDS was positive for cocaine, marijuana, opiates, the polysubstance is most likely the etiology of the atrial fibrillation (3) Chronic kidney disease, stage 3 (moderate) Is this a current diagnosis for this admission?: Yes
[2019-02-08] MEDS: MONTELUKAST SODIUM 10 MG TABLET PO SCH (18:49)
[2019-02-08] MEDS: ATORVASTATIN CALCIUM 20 MG TABLET PO SCH (22:14)
[2019-02-08] MEDS: WARFARIN SODIUM 5 MG TABLET PO SCH (22:14)
[2019-02-09] MEDS ORDERED: LEVOFLOXACIN 750 MG/D5W RTU 750 MG/150 ML RTUPB IV ONE (03:00)
[2019-02-09] MEDS: LANSOPRAZOLE 30 MG TAB.RAP.DR PO SCH (05:16)
[2019-02-09 06:53] LABS: ABSOLUTE BASOPHILS # (AUTO) 0.1 10^3/uL (0.0-0.2); ABSOLUTE EOSINOPHILS # (AUTO) 0.3 10^3/uL (0.0-0.6); ABSOLUTE LYMPHOCYTES (AUTO) 2.1 10^3/uL (0.5-4.7); ABSOLUTE MONOCYTES (AUTO) 0.6 10^3/uL (0.1-1.4); ABSOLUTE NEUT (AUTO) 3.2 10^3/uL (1.7-8.2); EOSINOPHILS % (AUTO) 4.1 % (0-6); HEMATOCRIT 37.9 % (37.9-51.0); HEMOGLOBIN 13.1 g/dL (13.5-17.0); MEAN CORPUSCULAR HEMOGLOBIN 33.9 pg (27.0-33.4); MEAN CORPUSCULAR HGB CONC 34.5 g/dL (32.0-36.0); MEAN CORPUSCULAR VOLUME 98 fl (80-97); PLATELET COUNT 192 10^3/uL (150-450); RED BLOOD COUNT 3.86 10^6/uL (4.35-5.55); SEGMENTED NEUTROPHILS % (AUTO) 50.9 % (42-78); TOTAL CELLS COUNTED % (AUTO) 100 %; WHITE BLOOD COUNT 6.2 10^3/uL (4.0-10.5)
[2019-02-09] MEDS: OXYCODONE HCL IR 5 MG TABLET PO PRN ×2 (08:09→20:53)
[2019-02-09] MEDS: INSULIN LISPRO 100 UNIT/ML 3 ML VIAL SUBCUT SCH ×4 (08:20→21:00)
[2019-02-09] MEDS: INSULIN GLARGINE,HUM.REC.ANLOG 300 UNIT/3 ML INSULN.PEN SUBCUT SCH (08:27)
[2019-02-09] MEDS: LOSARTAN POTASSIUM 50 MG TABLET PO SCH (10:22)
[2019-02-09] MEDS: TIOTROPIUM BROMIDE DPI 5 CAP/KIT (18 MCG/CAP) IH SCH (10:22)
[2019-02-09] MEDS: CETIRIZINE 10 MG TABLET PO SCH (10:23)
[2019-02-09] MEDS: BISACODYL 5 MG TABEC PO SCH (10:23)
[2019-02-09] MEDS: VENLAFAXINE HCL 75 MG CAP.SR.24H PO SCH ×2 (10:23→17:13)
[2019-02-09] MEDS: ASPIRIN 325 MG TABLET PO SCH (10:23)
[2019-02-09] MEDS: METOPROLOL TARTRATE 25 MG TABLET PO SCH ×2 (10:23→21:02)
[2019-02-09] MEDS: BUSPIRONE HCL 10 MG TABLET PO SCH ×2 (10:23→17:13)
[2019-02-09 10:51] LABS: INTERNATIONAL RATION (INR) 1.27; PROTHROMBIN TIME 16.5 SEC (11.4-15.4)
[2019-02-09] MEDS: LEVOFLOXACIN 750 MG/D5W RTU 750 MG/150 ML RTUPB IV SCH (17:13)
[2019-02-09] MEDS: MONTELUKAST SODIUM 10 MG TABLET PO SCH (17:13)
[2019-02-09] MEDS: OXYCODONE-ACETAMINOPHEN 5-325 MG TABLET PO PRN (20:53)
[2019-02-09] MEDS: WARFARIN SODIUM 5 MG TABLET PO SCH (21:02)
[2019-02-09] MEDS: ATORVASTATIN CALCIUM 20 MG TABLET PO SCH (21:03)
--- NOTE | 2019-02-09 21:38 | PDOC PROGRESS REPORT ---
Subjective Progress Note for:: 02/09/19 Subjective:: Patient seen by the bedside, the blood culture grew,Cocci in chains that suggest Streptococcus Reason For Visit: ATRIAL FIBRILLATION WITH RVR Physical Exam Vital Signs: Temp Pulse Resp BP Pulse Ox 97.9 F 62 18 148/84 H 100 02/09/19 19:36 02/09/19 19:36 02/09/19 19:36 02/09/19 19:36 02/09/19 19:36 Intake & Output 02/08/19 02/09/19 02/10/19 06:59 06:59 06:59 Intake Total 5 1044 1090 Output Total 0 750 1175 Balance 2054 294 -85 Weight 81.3 kg 81.9 kg General appearance: PRESENT: no acute distress Eye exam: PRESENT: PERRLA Respiratory exam: PRESENT: clear to auscultation norman Cardiovascular exam: PRESENT: +S1, +S2 GI/Abdominal exam: PRESENT: soft Neurological exam: PRESENT: alert Results Laboratory Results: 02/09/19 06:02 02/08/19 05:00 02/09/19 06:02 WBC 6.2 RBC 3.86 L Hgb 13.1 L Hct 37.9 MCV 98 H MCH 33.9 H MCHC 34.5 RDW 14.0 Plt Count 192 Seg Neutrophils % 50.9 Lymphocytes % 34.0 Monocytes % 10.0 Eosinophils % 4.1 Basophils % 1.0 Absolute Neutrophils 3.2 Absolute Lymphocytes 2.1 Absolute Monocytes 0.6 Absolute Eosinophils 0.3 Absolute Basophils 0.1 02/07/19 21:12 Throat Throat Culture - Final NORMAL CHRISTIAN 02/07/19 02/07/19 02/07/19 19:20 19:20 19:20 Creatine Kinase 128 CK-MB (CK-2) 0.76 Troponin I < 0.012 Cancelled 02/07/19 02/07/19 02/08/19 22:40 22:40 05:00 Creatine Kinase 113 115 CK-MB (CK-2) 0.70 Troponin I < 0.012 02/08/19 02/08/19 02/08/19 05:00 10:58 10:58 Creatine Kinase 112 CK-MB (CK-2) 0.88 0.91 Troponin I < 0.012 < 0.012 Impressions: Chest X-Ray 02/07/19 19:34 IMPRESSION: No acute disease. Assessment & Plan - Diagnosis (1) Atrial fibrillation with RVR Is this a current diagnosis for this admission?: Yes (2) Polysubstance abuse Is this a current diagnosis for this admission?: Yes Plan: The results of the UDS was discussed with the patient he admitted to using marijuana but he denied using cocaine (3) Chronic kidney disease, stage 3 (moderate) Is this a current diagnosis for this admission?: Yes
--- NOTE | 2019-02-09 21:54 | PDOC DISCHARGE SUMMARY ---
General - Admit/Disc Date/PCP Admission Date/Primary Care Provider: 02/07/19 21:18 JIMMY HARMAN MD Discharge Date: 02/10/19 - Discharge Diagnosis (1) Atrial fibrillation with RVR Is this a current diagnosis for this admission?: Yes (2) Polysubstance abuse Is this a current diagnosis for this admission?: Yes (3) Chronic kidney disease, stage 3 (moderate) Is this a current diagnosis for this admission?: Yes (4) Gram-positive cocci bacteremia Is this a current diagnosis for this admission?: Yes - Additional Information Resuscitation Status: Full Code Prescriptions: Warfarin Sodium [Coumadin 5 mg Tablet] 7.5 mg PO QHS #30 tablet Home Medications: Albuterol Sulfate [Proventil Hfa] 2 puff IH BID 02/07/19 Aspirin [Aspirin 325 mg Tablet] 325 mg PO DAILY 02/07/19 Atorvastatin Calcium [Lipitor 20 mg Tablet] 20 mg PO QHS 02/07/19 Bisacodyl [Laxative] 5 mg PO DAILY 02/07/19 Buspirone HCl [Buspar 15 mg Tablet] 15 mg PO BID 02/07/19 Butalb/Acetaminophen/Caffeine [Xtroae-Umtzpyhj-Qajq 50-300-40] 1 tab PO Q6HP PRN 02/07/19 Cetirizine HCl [Zyrtec 10 mg Tablet] 10 mg PO DAILY 02/07/19 Cyclobenzaprine HCl [Flexeril 5 mg Tablet] 5 mg PO BIDP PRN 02/07/19 Dicyclomine HCl [Bentyl 10 mg Capsule] 10 mg PO Q8HP PRN 02/07/19 Ergocalciferol (Vitamin D2) [Drisdol 50,000 unit (1.25MG) Capsule] 50,000 unit PO [id number] 02/07/19 Furosemide [Lasix 40 mg Tablet] 40 mg PO DAILY 02/07/19 Insulin Aspart [Novolog Flexpen] 4 units SQ MEALS 02/07/19 Insulin Glargine,Hum.rec.anlog [Lantus Insulin 100 Unit/mL] 6 units SQ QAM 02/07/19 Losartan Potassium [Cozaar 50 mg Tablet] 50 mg PO DAILY 02/07/19 Metoprolol Tartrate [Lopressor 25 mg Tablet] 25 mg PO Q12 02/07/19 Montelukast Sodium [Singulair 10 mg Tablet] 10 mg PO QPM 02/07/19 Omeprazole 40 mg PO DAILY 02/07/19 Oxycodone HCl/Acetaminophen [Percocet 10-325 mg Tablet] 1 tab PO Q6HP PRN 02/07/19 Tiotropium [place] [Spiriva Handihaler 5 Cap/Kit (18 Mcg/Cap)] 1 cap IH DAILY 02/07/19 Venlafaxine HCl ER [Effexor Xr 75 mg Cap.sr] 75 mg PO BID 02/07/19 Warfarin Sodium [Coumadin 5 mg Tablet] 7.5 mg PO QHS #30 tablet 02/09/19 History of Present Illness History of Present Illness: JUANPABLO HURST is a 59 year old male,He came to emergency room last night for evaluation of palpitation, shortness of breath, chest pain, abdominal pain in the emergency room he was evaluated EKG demonstrated narrow complex tachycardia. In the emergency room he was treated with intravenous Cardizem infusion, adenosine without cardioversion, patient remains in narrow complex tachycardia, it was initially thought to be AV node reentrant tachycardia versus atrial fibrillation. I was called by the ED physician to admit this patient to the hospital for further management. Patient was on Cardizem infusion with a low blood pressure, the Cardizem was discontinued and he was started on intravenous amiodarone per protocol initially bolus and then maintenance ultimately he was cardioverted to sinus rhythm.The urine drug screen that was done was positive for cocaine, marijuana, and opiates Hospital Course Hospital Course: Patient was admitted when he presented with narrow complex tachycardia felt to be due to paroxysmal atrial fibrillation .patient was treated with intravenous amiodarone infusion, this was cardioverted to sinus rhythm, the urine drug screen was positive for polysubstance, cocaine marijuana and opiate the etiology of the paroxysmal atrial fibrillation was felt to be due to the polysubstance including the combination of marijuana,cocaine and opiate. Physical Exam Vital Signs: Temp Pulse Resp BP Pulse Ox 97.9 F 62 18 148/84 H 100 02/09/19 19:36 02/09/19 19:36 02/09/19 19:36 02/09/19 19:36 02/09/19 19:36 Intake & Output 02/08/19 02/09/19 02/10/19 06:59 06:59 06:59 Intake Total 2054 1044 1090 Output Total 0 750 1175 Balance 2054 294 -85 Weight 81.3 kg 81.9 kg General appearance: PRESENT: no acute distress Head exam: PRESENT: atraumatic, normocephalic Eye exam: PRESENT: PERRLA Ear exam: PRESENT: normal external ear exam Neck exam: PRESENT: full ROM Respiratory exam: PRESENT: clear to auscultation norman Cardiovascular exam: PRESENT: RRR, +S1, +S2 Vascular exam: PRESENT: normal capillary refill GI/Abdominal exam: PRESENT: normal bowel sounds, soft Rectal exam: PRESENT: deferred Neurological exam: PRESENT: alert, CN II-XII grossly intact Psychiatric exam: PRESENT: appropriate affect, normal mood Skin exam: PRESENT: dry, intact, warm Results Laboratory Results: 02/09/19 06:02 02/08/19 05:00 02/09/19 06:02 WBC 6.2 RBC 3.86 L Hgb 13.1 L Hct 37.9 MCV 98 H MCH 33.9 H MCHC 34.5 RDW 14.0 Plt Count 192 Seg Neutrophils % 50.9 Lymphocytes % 34.0 Monocytes % 10.0 Eosinophils % 4.1 Basophils % 1.0 Absolute Neutrophils 3.2 Absolute Lymphocytes 2.1 Absolute Monocytes 0.6 Absolute Eosinophils 0.3 Absolute Basophils 0.1 02/07/19 21:12 Throat Throat Culture - Final NORMAL CHRISTIAN 02/07/19 02/07/19 02/07/19 19:20 19:20 19:20 Creatine Kinase 128 CK-MB (CK-2) 0.76 Troponin I < 0.012 Cancelled 02/07/19 02/07/19 02/08/19 22:40 22:40 05:00 Creatine Kinase 113 115 CK-MB (CK-2) 0.70 Troponin I < 0.012 02/08/19 02/08/19 02/08/19 05:00 10:58 10:58 Creatine Kinase 112 CK-MB (CK-2) 0.88 0.91 Troponin I < 0.012 < 0.012 Impressions: Chest X-Ray 02/07/19 19:34 IMPRESSION: No acute disease. Qualifiers - * PATIENT BEING DISCHARGED WITH ANY OF THE FOLLOWING DIAGNOSIS: No
[2019-02-09] MEDS ORDERED: WARFARIN SODIUM 5 MG TABLET PO SCH (22:00)
[2019-02-10] MEDS: LANSOPRAZOLE 30 MG TAB.RAP.DR PO SCH (05:34)
[2019-02-10] MEDS: LEVOFLOXACIN 750 MG/D5W RTU 750 MG/150 ML RTUPB IV SCH (05:34)
[2019-02-10 06:12] LABS: ABSOLUTE EOSINOPHILS # (AUTO) 0.3 10^3/uL (0.0-0.6); ABSOLUTE MONOCYTES (AUTO) 0.6 10^3/uL (0.1-1.4); ABSOLUTE NEUT (AUTO) 2.9 10^3/uL (1.7-8.2); BASOPHILS % (AUTO) 0.7 % (0-2); EOSINOPHILS % (AUTO) 4.6 % (0-6); HEMATOCRIT 38.9 % (37.9-51.0); HEMOGLOBIN 13.4 g/dL (13.5-17.0); LYMPHOCYTES % (AUTO) 35.5 % (13-45); MEAN CORPUSCULAR HEMOGLOBIN 33.8 pg (27.0-33.4); MEAN CORPUSCULAR HGB CONC 34.6 g/dL (32.0-36.0); MEAN CORPUSCULAR VOLUME 98 fl (80-97); MONOCYTES % (AUTO) 9.6 % (3-13); PLATELET COUNT 202 10^3/uL (150-450); RED BLOOD COUNT 3.98 10^6/uL (4.35-5.55); RED CELL DISTRIBUTION WIDTH 13.7 % (11.5-14.0); SEGMENTED NEUTROPHILS % (AUTO) 49.6 % (42-78); TOTAL CELLS COUNTED % (AUTO) 100 %; WHITE BLOOD COUNT 5.8 10^3/uL (4.0-10.5)
[2019-02-10 08:05] VITALS: BP 130/75
[2019-02-10] MEDS: INSULIN LISPRO 100 UNIT/ML 3 ML VIAL SUBCUT SCH (08:47)
[2019-02-10] MEDS: INSULIN GLARGINE,HUM.REC.ANLOG 300 UNIT/3 ML INSULN.PEN SUBCUT SCH (09:20)
[2019-02-10] MEDS: OXYCODONE HCL IR 5 MG TABLET PO PRN (09:20)
[2019-02-10] MEDS: BISACODYL 5 MG TABEC PO SCH (09:20)
[2019-02-10] MEDS: CETIRIZINE 10 MG TABLET PO SCH (09:20)
[2019-02-10] MEDS: LOSARTAN POTASSIUM 50 MG TABLET PO SCH (09:20)
[2019-02-10] MEDS: BUSPIRONE HCL 10 MG TABLET PO SCH (09:20)
[2019-02-10] MEDS: METOPROLOL TARTRATE 25 MG TABLET PO SCH (09:20)
[2019-02-10] MEDS: ASPIRIN 325 MG TABLET PO SCH (09:21)
[2019-02-10] MEDS: VENLAFAXINE HCL 75 MG CAP.SR.24H PO SCH (09:22)
[2019-02-10] MEDS: TIOTROPIUM BROMIDE DPI 5 CAP/KIT (18 MCG/CAP) IH SCH (09:22)
[2019-02-10 09:33] LABS: INTERNATIONAL RATION (INR) 1.13; PROTHROMBIN TIME 15.1 SEC (11.4-15.4)
--- NOTE | 2019-02-10 12:47 | XCELERA REPORT ---
[address] [address] Transthoracic Echocardiogram Report Name: JUANPABLO HURST Age: 59 yrs Gender: Male : 1960 Patient Status: Inpatient Patient Location: [address] [place] [address] Study Date: 02/08/2019 02:32 PM Procedure: A two-dimensional transthoracic echocardiogram with color flow and Doppler was performed. Images were not obtained from all of the standard acoustic windows due to the limited scope of the study. Reason For Study: ATRIAL FIBRILLATION History: ATRIAL FIBRILLATION. Ordering Physician: JIMMY HARMAN Performed By: Lorri Farias Interpretation Summary Images were not obtained from all of the standard acoustic windows due to the limited scope of the study. The left ventricle is normal in size. There is normal left ventricular wall thickness. No True apical 2 chamber views obtained.Hence cannot comment on the apical anterior , the basal anterior, the basal inferior and apical inferior moon.The mid anterior , the mid inferior and the rest of the LV moon contract normally. .Normal LVEF is normal and is greater than 65% in the limited views. Doppler measurements suggest normal left ventricular diastolic function There is no thrombus. The right atrium is normal. The left atrial size is normal. There is no evidence of mitral valve prolapse. There is no vegetation seen on the mitral valve. There is no mitral valve stenosis. There is a mild amount of mitral regurgitation There is no aortic valve stenosis There is no LVOT obstruction. No aortic regurgitation is present. There is no tricuspid stenosis. There is a mild amount of tricuspid regurgitation There is mild pulmonary hypertension by echo RVSP is 36 mm of Hg , wirh RA mean of 10. There is no pulmonic valvular stenosis. There is no pulmonic valvular regurgitation. The aortic root is normal size. There is no pericardial effusion. MMode/2D Measurements & Calculations RVDd: 3.2 cm LVIDd: 4.9 cm FS: 39.1 % Ao root diam: 3.2 cm IVSd: 0.69 cm LVIDs: 3.0 cm EDV(Teich): 114.9 ml Ao root area: 8.0 cm2 LVPWd: 1.1 cm ESV(Teich): 35.2 ml EF(Teich): 69.4 % Doppler Measurements & Calculations MV E max jackeline: MV dec slope: Ao V2 max: LV V1 max P.4 cm/sec 107.1 cm/sec 2.8 mmHg MV A max jackeline: 375.7 cm/sec2 Ao max PG: LV V1 max: 49.0 cm/sec MV dec time: 0.18 sec4.6 mmHg 83.3 cm/sec MV E/A: 1.4 PA V2 max: TR max jackeline: 75.9 cm/sec 255.6 cm/sec PA max P.3 mmHg TR max P.1 mmHg Left Ventricle The left ventricle is normal in size. There is normal left ventricular wall thickness. No True apical 2 chamber views obtained.Hence cannot comment on the apical anterior , the basal anterior, the basal inferior and apical inferior moon.The mid anterior , the mid inferior and the rest of the LV moon contract normally. .Normal LVEF is normal and is greater than 65% in the limited views. Doppler measurements suggest normal left ventricular diastolic function. There is no thrombus. Right Ventricle The right ventricle is not well visualized secondary to technical limitations. Atria The right atrium is normal. The left atrial size is normal. Mitral Valve There is no evidence of mitral valve prolapse. There is no vegetation seen on the mitral valve. There is no mitral valve stenosis. There is a mild amount of mitral regurgitation. Aortic Valve There is no aortic valvular vegetation. There is no aortic valve stenosis. There is no LVOT obstruction. No aortic regurgitation is present. Tricuspid Valve There is no tricuspid stenosis. There is a mild amount of tricuspid regurgitation. There is mild pulmonary hypertension by echo. RVSP is 36 mm of Hg , wirh RA mean of 10. Pulmonic Valve There is no pulmonic valvular stenosis. There is no pulmonic valvular regurgitation. Great Vessels The aortic root is normal size. Effusions There is no pericardial effusion. : JIMMY HARMAN > Tara Estes
[2019-02-11] MEDS ORDERED: PANTOPRAZOLE SODIUM 40 MG TABLET.DR PO SCH (06:00)
== END 2019-02-10 09:45 | disposition home or self-care (01) | DRG 309 ==
LOC: ER 19:09 → EH 21:18 → 3S 02-08 00:31
PROVIDERS: ADMIT Internal Medicine; ATTEND Internal Medicine
DX: I48.0 Paroxysmal atrial fibrillation (principal); I87.1 Compression of vein; I12.9 Hypertensive chronic kidney disease with stage 1 through stage 4 chronic kidney disease, or unspecified chronic kidney disease; N18.3 Chronic kidney disease, stage 3 (moderate); E11.22 Type 2 diabetes mellitus with diabetic chronic kidney disease; J44.9 Chronic obstructive pulmonary disease, unspecified; K21.9 Gastro-esophageal reflux disease without esophagitis; F32.9 Major depressive disorder, single episode, unspecified; F17.210 Nicotine dependence, cigarettes, uncomplicated; F19.10 Other psychoactive substance abuse, uncomplicated; Z79.01 Long term (current) use of anticoagulants; Z79.82 Long term (current) use of aspirin; Z79.4 Long term (current) use of insulin; Z79.51 Long term (current) use of inhaled steroids; Z79.899 Other long term (current) drug therapy
CPT/HCPCS: 36415; 71045; 80053; 80307; 81001; 82140; 82150; 82550; 82553; 82570; 82962; 83036; 83690; 83735; 84100; 84156; 84439; 84443; 84484; 85025; 85027; 85610; 85730; 87040; 87070; 87077; 87086; 87880; 93005; 93010; 93306; 96361; 96365; 96375; 96376; 99291; J0153; J0282; J1815; J1956; J3010; J3490; J7030; J7060

== ENCOUNTER 2019-03-06 14:00 | Emergency (ER) | payer MEDICAID ==
[2019-03-06] MEDS ORDERED: NORMAL SALINE 1000 ML 1,000 ML IV ONE ×3 (15:10→19:50)
--- NOTE | 2019-03-06 15:13 | ER Document Report ---
ED General - General Chief Complaint: Irregular Pulse Stated Complaint: BLOOD PRESSURE CONCERNS Time Seen by Provider: 03/06/19 15:09 Primary Care Provider: JIMMY HARMAN MD [Primary Care Provider] - Follow up as needed Notes: 59-year-old male presents with fast heart rate. He says he feels "pretty normal" and was noted to be tachycardic at the office of Dr. Buckner the animal shelter supervisor he was sent to the emergency department. He has a history of multiple medical problems including SVC syndrome thrombosed Port-A-Cath, but denies any cardiac history. The nurse that he was in a ectopic atrial tachycardia in the office. TRAVEL OUTSIDE OF THE [place] IN LAST 30 DAYS: No - Related Data Allergies/Adverse Reactions: hydromorphone [From Dilaudid] Adverse Reaction (Mild, Verified 02/07/19 19:39) Hives morphine Adverse Reaction (Mild, Verified 02/07/19 20:47) Hives Past Medical History - Social History Smoking Status: Former Smoker Drug Abuse: Cocaine, Marijuana Family History: Reviewed & Not Pertinent - Past Medical History Cardiac Medical History: Reports: Hx Atrial Fibrillation, Hx Hypertension Pulmonary Medical History: Reports: Hx COPD Endocrine Medical History: Reports: Hx Diabetes Mellitus Type 2 Renal/ Medical History: Denies: Hx Peritoneal Dialysis GI Medical History: Reports: Hx Gastroesophageal Reflux Disease, Hx Hiatal Hernia Psychiatric Medical History: Reports: Hx Depression Past Surgical History: Reports: Hx Appendectomy, Hx Cardiac Catheterization - x2, Hx Cardiac Surgery - Bypass, Hx Cholecystectomy, Other - SVC bypass - Immunizations Hx Pneumococcal Vaccination: 11/29/11 Review of Systems - Review of Systems Notes: REVIEW OF SYSTEMS GEN: Denies fever, chills, weight loss ENT: Denies sore throat, nasal discharge, ear pain EYES: Denies blurry vision, eye pain, discharge CV: Denies chest pain, palpitations, edema RESP: Denies cough, shortness of breath, wheezing GI: Denies abdominal pain, nausea, vomiting, diarrhea MSK: Denies joint pain/swelling, edema, SKIN: Denies rash, skin lesions LYMPH: Denies swollen glands/lymph nodes NEURO: Denies headache, focal weakness or numbness, dizziness PSYCH: Denies depression, suicidal or homicidal ideation PHYSICAL EXAMINATION General: No acute distress, well-nourished Head: Atraumatic, normocephalic ENT: Mouth normal, oropharynx moist, no exudates or tonsillar enlargement Eyes: Conjunctiva normal, pupils equal, lids normal Neck: No JVD, supple, no guarding CVS: Rapid rate, regular rhythm, no murmurs Resp: No resp distress, equal and normal breath sounds bilaterally with dilated veins throughout the upper chest, chronic GI: Nondistended, soft, no tenderness to palpation, no rebound or guarding Ext: No deformities, no edema, normal range of motion in upper and lower ext Back: No CVA or midline TTP Skin: No rash, warm Lymphatic: No lymphadeopathy noted Neuro: Awake, alert. Face symmetric. GCS 15. Physical Exam - Vital signs Vitals: Temp Pulse Resp BP Pulse Ox 98.1 F 135 H 16 103/68 98 03/06/19 14:30 03/06/19 14:30 03/06/19 14:30 03/06/19 14:30 03/06/19 14:30 Course - Re-evaluation Re-evalutation: 03/06/19 15:29 Patient with complex medical history presents with relative hypotension in the setting of a rapid supraventricular tachycardia. On previous admissions it was either thought to be an ectopic atrial tachycardia or A. fib. He is on warfarin. We are having trouble with an IV. We will get the IV hydrate him, and begin a Cardizem drip. I will see the value to repeating adenosine given that did not work last time. I did replace the EKG, repeated with a fast paper speed and did not see P waves. Since Dr. Estes asked me to do the Cardizem drip I will, however I think that the patient needs to see his [facility] supervisor [facility] so we will initiate transfer to [facility]. 03/06/19 16:[address] Estes. Finally obtained IV. Patient's rate came down quite quickly with a Cardizem drip. His blood pressure stayed stable. Labs are pending. Discussed with supervisor train operations at [facility] who accepted patient on behalf of 03/06/19 17:00 Patient reevaluated. His labs are essentially normal with a therapeutic INR of 2, just over 2. His Cardizem drip is resulted in his heart rate coming down to around 100 but he is having intermittent pauses. EKG was repeated twice, it shows sinus tachycardia with intermittent premature complexes followed by pauses. At this point given the pauses I will turn off the drip. - Vital Signs Vital signs: Temp Pulse Resp BP Pulse Ox 98.1 F 135 H 20 100/85 94 03/06/19 14:30 03/06/19 14:30 03/06/19 15:54 03/06/19 15:54 03/06/19 15:53 - Laboratory Result Diagrams: 03/06/19 15:43 03/06/19 15:43 Laboratory results interpreted by me: 03/06/19 03/06/19 03/06/19 15:43 15:43 15:43 RBC 4.17 L MCV 98 H PT 23.9 H BUN 43 H Creatinine 1.95 H Est GFR ( Amer) 43 L Est GFR (Non-Af Amer) 36 L Glucose 290 H - Diagnostic Test Radiology reviewed: Image reviewed, Reports reviewed - EKG Interpretation by Me Rate: Tachycardia Rhythm: SVT, Arrthymia - Regular narrow complex tachycardia When compared to previous EKG there are: Changes noted Additional EKG results interpreted by me: 03/06/19 16:56 EKG #2 at 1516: Slow down version of EKG #1. Rate 140. QRS duration 76. No P waves seen. Unchanged from past EKG. 03/06/19 17:00 EKG number 3 x 1649 Sinus tachycardia QRS 82 Intermittent pauses after premature beats Changed from past Procedures - Additional Procedures IV insertion Additional Procedures: IV insertion - Sterile technique and ultrasound guidance in real time, a 20-gauge IV was inserted into a superficial vein in the right biceps area. Tolerated well Critical Care Note - Critical Care Note Total time excluding time spent on procedures (mins): 72 Comments: The above patient is critically ill. Not including procedures, but including direct re-evaluations, speaking with patient and/or consultants, interpreting results, and documenting, I spent the total amount of minute listed listed above on critical care time Discharge - Discharge Clinical Impression: Supraventricular tachycardia Condition: Critical Disposition: [facility] Referrals: JIMMY HARMAN MD [Primary Care Provider] - Follow up as needed
[2019-03-06] MEDS ORDERED: DILTIAZEM HCL INJ 25 MG/5 ML VIAL IV ONE (15:19)
[2019-03-06] MEDS ORDERED: DILTIAZEM HCL/D5W 125 MG/125 ML RTUINJ IV PRN (15:19)
[2019-03-06 16:05] LABS: ABSOLUTE BASOPHILS # (AUTO) 0.1 10^3/uL (0.0-0.2); ABSOLUTE EOSINOPHILS # (AUTO) 0.4 10^3/uL (0.0-0.6); ABSOLUTE LYMPHOCYTES (AUTO) 2.1 10^3/uL (0.5-4.7); ABSOLUTE MONOCYTES (AUTO) 0.4 10^3/uL (0.1-1.4); ABSOLUTE NEUT (AUTO) 3.5 10^3/uL (1.7-8.2); BASOPHILS % (AUTO) 1.1 % (0-2); EOSINOPHILS % (AUTO) 5.6 % (0-6); HEMATOCRIT 40.6 % (37.9-51.0); HEMOGLOBIN 13.8 g/dL (13.5-17.0); LYMPHOCYTES % (AUTO) 32.4 % (13-45); MEAN CORPUSCULAR HEMOGLOBIN 33.2 pg (27.0-33.4); MEAN CORPUSCULAR VOLUME 98 fl (80-97); PLATELET COUNT 180 10^3/uL (150-450); RED BLOOD COUNT 4.17 10^6/uL (4.35-5.55); RED CELL DISTRIBUTION WIDTH 13.7 % (11.5-14.0); SEGMENTED NEUTROPHILS % (AUTO) 54.9 % (42-78); TOTAL CELLS COUNTED % (AUTO) 100 %; WHITE BLOOD COUNT 6.4 10^3/uL (4.0-10.5)
[2019-03-06 16:09] LABS: INTERNATIONAL RATION (INR) 2.02; PROTHROMBIN TIME 23.9 SEC (11.4-15.4)
--- NOTE | 2019-03-06 16:11 | RADIOLOGY REPORT (SQ) ---
EXAM DESCRIPTION: CHEST SINGLE VIEW COMPLETED DATE/TIME: 03/06/2019 3:53 pm REASON FOR STUDY: CP COMPARISON: 02/07/2019 EXAM PARAMETERS: NUMBER OF VIEWS: One view. TECHNIQUE: Single frontal radiographic view of the chest acquired. RADIATION DOSE: NA LIMITATIONS: None. FINDINGS: LUNGS AND PLEURA: No opacities, masses or pneumothorax. No pleural effusion. MEDIASTINUM AND HILAR STRUCTURES: No masses. Contour normal. HEART AND VASCULAR STRUCTURES: Heart normal in size. Normal vasculature. BONES: No acute findings. HARDWARE: Sternotomy wires. OTHER: No other significant finding. IMPRESSION: NO ACUTE RADIOGRAPHIC FINDING IN THE CHEST. TECHNICAL DOCUMENTATION: JOB ID: [id number] [employer]- All Rights Reserved Reading location - IP/workstation name: [email or web address]
[2019-03-06 16:23] LABS: ANION GAP 9 (5-19); BLOOD UREA NITROGEN 43 mg/dL (7-20); CALCIUM 9.6 mg/dL (8.4-10.2); CARBON DIOXIDE 25 mmol/L (22-30); CHLORIDE 105 mmol/L (98-107); GLUCOSE 290 mg/dL (75-110); POTASSIUM 4.7 mmol/L (3.6-5.0); SODIUM 138.6 mmol/L (137-145)
[2019-03-06] MEDS ORDERED: ETOMIDATE INJ/PF 20 MG/10 ML SDV IV ONE (17:49)
[2019-03-06] MEDS ORDERED: CALCIUM GLUCONATE 1000 MG/10 ML INJ IV ONE ×2 (18:00→18:05)
[2019-03-06] MEDS ORDERED: KETOROLAC TROMETHAMINE INJ/PF 30 MG/1 ML SDV IV ONE (19:38)
--- NOTE | 2019-03-06 20:50 | EKG REPORT ---
SEVERITY:- ABNORMAL ECG - SINUS TACHYCARDIA WITH FREQUENT APCs : Confirmed by: Debbie Chase 06-Mar-2019 20:50:12
--- NOTE | 2019-03-06 20:50 | ER Document Report ---
Doctor's Note Notes: 03/06/19 20:47 ASSESSMENT AND PLAN: Briefly, this patient is a 59-year-old male who presents with tachycardia with hypotension, atrial fibrillation versus SVT versus narrow complex tachycardia of unknown origin. Interventions include initially starting the patient on a diltiazem drip, this controlled his rate however he had episodes of hypotension and long cardiac pauses so the drip was stopped, currently has heart rate in the 130s and blood pressure stable with a MAP of 70. Patient is mentating appropriately and is in no acute distress above the presenting condition. 1. Patient is currently being transferred to outside facility.
[2019-03-06 20:52] VITALS: BP 107/87
--- NOTE | 2019-03-06 20:52 | EKG REPORT ---
SEVERITY:- BORDERLINE ECG - SINUS TACHYCARDIA VS A FLUTTER WITH 2:1 CONDUCTION VS PAT BORDERLINE PROLONGED QT INTERVAL : Confirmed by: Debbie Chase 06-Mar-2019 20:51:50
--- NOTE | 2019-03-06 20:54 | EKG REPORT ---
SEVERITY:- ABNORMAL ECG - SINUS TACHYCARDIA 2:! LEFT ATRIAL ABNORMALITY BORDERLINE PROLONGED QT INTERVAL : Confirmed by: Debbie Chase 06-Mar-2019 20:54:05
--- NOTE | 2019-03-08 00:07 | EKG REPORT ---
SEVERITY:- ABNORMAL ECG - SINUS RHYTHM SUPRAVENTRICULAR BIGEMINY SINUS PAUSE/ARREST WITH ATRIAL ESCAPE FIRST DEGREE AV BLOCK CONSIDER ANTEROSEPTAL INFARCT : Confirmed by: Debbie Chase 08-Mar-2019 00:06:19
== END 2019-03-06 21:00 | disposition short-term general hospital (02) ==
LOC: ER 14:00
DX: I47.1 Supraventricular tachycardia (principal); I95.9 Hypotension, unspecified; F14.10 Cocaine abuse, uncomplicated; F12.10 Cannabis abuse, uncomplicated; I86.8 Varicose veins of other specified sites; I10 Essential (primary) hypertension; J44.9 Chronic obstructive pulmonary disease, unspecified; E11.9 Type 2 diabetes mellitus without complications; Z79.01 Long term (current) use of anticoagulants; Z87.891 Personal history of nicotine dependence; Z95.1 Presence of aortocoronary bypass graft
CPT/HCPCS: 93005; 96376; 99291; 96361; 96375; 96365; 96366; 36415; 85025; 85610; 80048; 84484; 71045; 93010; 36556; C1751; J0610; J3490 ×3; J1885; J7030

== ENCOUNTER → 2019-06-22 | Outpatient (CLI) | payer MEDICAID ==
[2019-06-22 10:25] LABS: APPEARANCE,URINE CLEAR; BILIRUBIN,URINE NEGATIVE (NEGATIVE); COLOR,URINE YELLOW; GLUCOSE, URINE NEGATIVE (NEGATIVE); KETONES,URINE NEGATIVE (NEGATIVE); LEUKOCYTE ESTERASE,URINE NEGATIVE (NEGATIVE); NITRITE,URINE NEGATIVE (NEGATIVE); PROTEIN,URINE 30 mg/dL (NEGATIVE); URINE SPECIFIC GRAVITY 1.016; UROBILINOGEN,URINE NEGATIVE mg/dL (<2.0)
[2019-06-22 10:25] LABS: INTERNATIONAL RATION (INR) 1.65; PROTHROMBIN TIME 19.7 SEC (11.4-15.4)
[2019-06-22 10:31] LABS: ABSOLUTE BASOPHILS # (AUTO) 0.1 10^3/uL (0.0-0.2); ABSOLUTE EOSINOPHILS # (AUTO) 0.3 10^3/uL (0.0-0.6); ABSOLUTE LYMPHOCYTES (AUTO) 1.9 10^3/uL (0.5-4.7); ABSOLUTE MONOCYTES (AUTO) 0.5 10^3/uL (0.1-1.4); ABSOLUTE NEUT (AUTO) 3.6 10^3/uL (1.7-8.2); BASOPHILS % (AUTO) 1.1 % (0-2); EOSINOPHILS % (AUTO) 4.5 % (0-6); HEMATOCRIT 41.8 % (37.9-51.0); HEMOGLOBIN 14.3 g/dL (13.5-17.0); LYMPHOCYTES % (AUTO) 30.8 % (13-45); MEAN CORPUSCULAR HEMOGLOBIN 33.1 pg (27.0-33.4); MEAN CORPUSCULAR HGB CONC 34.1 g/dL (32.0-36.0); MEAN CORPUSCULAR VOLUME 97 fl (80-97); MONOCYTES % (AUTO) 7.4 % (3-13); PLATELET COUNT 191 10^3/uL (150-450); RED BLOOD COUNT 4.31 10^6/uL (4.35-5.55); RED CELL DISTRIBUTION WIDTH 14.5 % (11.5-14.0); SEGMENTED NEUTROPHILS % (AUTO) 56.2 % (42-78); TOTAL CELLS COUNTED % (AUTO) 100 %; WHITE BLOOD COUNT 6.3 10^3/uL (4.0-10.5)
[2019-06-22 10:52] LABS: ALBUMIN 4.3 g/dL (3.5-5.0); ANION GAP 7 (5-19); BLOOD UREA NITROGEN 45 mg/dL (7-20); CALCIUM 9.1 mg/dL (8.4-10.2); CARBON DIOXIDE 26 mmol/L (22-30); CHLORIDE 107 mmol/L (98-107); GLUCOSE 137 mg/dL (75-110); PHOSPHORUS 3.5 mg/dL (2.5-4.5); POTASSIUM 4.8 mmol/L (3.6-5.0)
[2019-06-22 11:03] LABS: UR PRO/CREAT RATIO RESULT 0.3 mg/mg (0.0-0.2); URINE CREATININE 126.5 mg/dL (22-328); URINE PROTEIN 40.2 mg/dL (<12)
[2019-06-25 11:36] LABS: ALBUMIN 2 3.7 g/dL (2.9-4.4); ALPHA-2-GLOBULIN 2 0.9 g/dL (0.4-1.0); BETA GLOBULINS 1.2 g/dL (0.7-1.3); GAMMA GLOBULIN 1.4 g/dL (0.4-1.8); GLOBULIN TOTAL 3.7 g/dL (2.2-3.9); MONOCLONAL SPIKE Not Observed g/dL (Not Observ); PROTEIN TOTAL SERUM 7.4 g/dL (6.0-8.5)
== END ==
LOC: OD 09:29
PROVIDERS: ATTEND Internal Medicine Nephrology
DX: E11.22 Type 2 diabetes mellitus with diabetic chronic kidney disease (principal); N18.3 Chronic kidney disease, stage 3 (moderate); E87.5 Hyperkalemia; R79.1 Abnormal coagulation profile
CPT/HCPCS: 36415; 80048; 81001; 82040; 82306; 82570; 83970; 84100; 84156; 84165; 85025; 85610

== ENCOUNTER → 2019-10-17 | Outpatient (CLI) | payer MEDICAID ==
[2019-10-17 08:57] LABS: ANION GAP 7 (5-19); BLOOD UREA NITROGEN 43 mg/dL (7-20); CALCIUM 8.9 mg/dL (8.4-10.2); CARBON DIOXIDE 26 mmol/L (22-30); CHLORIDE 106 mmol/L (98-107); GLUCOSE 130 mg/dL (75-110); POTASSIUM 4.6 mmol/L (3.6-5.0)
[2019-10-17 09:07] LABS: UR PRO/CREAT RATIO RESULT 0.2 mg/mg (0.0-0.2); URINE CREATININE 226.6 mg/dL (22-328); URINE PROTEIN 55.9 mg/dL (<12)
== END ==
LOC: OD 07:59
PROVIDERS: ATTEND Internal Medicine Nephrology
DX: I12.9 Hypertensive chronic kidney disease with stage 1 through stage 4 chronic kidney disease, or unspecified chronic kidney disease (principal); N18.3 Chronic kidney disease, stage 3 (moderate); N25.81 Secondary hyperparathyroidism of renal origin; E11.22 Type 2 diabetes mellitus with diabetic chronic kidney disease
CPT/HCPCS: 36415; 80048; 82570; 83970; 84156

== ENCOUNTER → 2020-01-05 | Outpatient (CLI) | payer MEDICAID ==
[2020-01-05 15:33] LABS: ANION GAP 10 (5-19); BLOOD UREA NITROGEN 47 mg/dL (7-20); CALCIUM 9.1 mg/dL (8.4-10.2); CARBON DIOXIDE 28 mmol/L (22-30); CHLORIDE 98 mmol/L (98-107); GLUCOSE 134 mg/dL (75-110); POTASSIUM 4.6 mmol/L (3.6-5.0)
== END ==
LOC: OD 14:13
PROVIDERS: ATTEND Specialist
DX: I87.1 Compression of vein (principal); R06.00 Dyspnea, unspecified; J44.9 Chronic obstructive pulmonary disease, unspecified; G47.30 Sleep apnea, unspecified; I12.9 Hypertensive chronic kidney disease with stage 1 through stage 4 chronic kidney disease, or unspecified chronic kidney disease; N18.3 Chronic kidney disease, stage 3 (moderate); E11.22 Type 2 diabetes mellitus with diabetic chronic kidney disease; G89.4 Chronic pain syndrome; F17.219 Nicotine dependence, cigarettes, with unspecified nicotine-induced disorders; R01.1 Cardiac murmur, unspecified; Z79.899 Other long term (current) drug therapy
CPT/HCPCS: 36415; 80048; 83735